=== PATIENT | male | born 1985 ===

== ENCOUNTER 2018-07-05 17:26 | Inpatient (IN) | payer SELFPAY ==
[~2018-07-05] VITALS: Ht 190.5 cm; Wt 86.4 kg
[2018-07-05] MEDS ORDERED: vancomycin/NS 1 GM ADD-VANTAGE 250 ML IV ONE (17:45)
[2018-07-05] MEDS ORDERED: LORazepam 2 mg/ml vial IV ONE (17:45)
[2018-07-05] MEDS ORDERED: normal saline 1000ML IV soln IV ONE (17:45)
[2018-07-05] MEDS ORDERED: piperacillin/tazo 3.375gm/50ml 50 ML IV ONE (17:45)
[2018-07-05 18:10] LABS: BASOPHILS # (AUTO) 0.1 X10'3 (0-0.2); BASOPHILS % (AUTO) 0.7 % (0-1); EOSINOPHILS # (AUTO) 0.6 X10'3 (0-0.9); EOSINOPHILS % (AUTO) 7.3 % (0-6); HEMOGLOBIN 13.1 g/dl (14.0-17.9); LYMPHOCYTES # (AUTO) 1.3 X10'3 (1.1-4.8); LYMPHOCYTES % (AUTO) 14.9 % (21-51); MEAN CORPUSCULAR HEMOGLOBIN 31.2 PG (27.0-31.0); MEAN CORPUSCULAR HGB CONC 33.7 % (33.0-36.5); MEAN CORPUSCULAR VOLUME 92.6 FL (78-98); MEAN PLATELET VOLUME 8.1 FL (7.4-10.4); MONOCYTES # (AUTO) 0.8 X10'3 (0-0.9); MONOCYTES % (AUTO) 8.7 % (2-12); NEUTROPHILS # (AUTO) 6.1 X10'3 (1.8-7.7); NEUTROPHILS % (AUTO) 68.4 % (42-75); PLATELET COUNT 296 X10'3 (140-440); RED BLOOD COUNT 4.21 X10'6 (4.70-6.10); RED CELL DISTRIBUTION WIDTH 12.7 % (11.5-14.5); WHITE BLOOD COUNT 8.9 X10'3 (4.5-11.0)
--- NOTE | 2018-07-05 18:19 | NUR ---
PATIENT ARRIVED IN CUSTODY OF [facility] FROM [facility]ILL[facility] NURSING WITH LEFT FOOT SWELLING, REDDNESS, PUSS AND PAIN. 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
[2018-07-05 18:20] LABS: PROTHROMBIN TIME 10.4 SECONDS (9.0-12.0)
[2018-07-05 18:23] LABS: ALANINE AMINOTRANSFERASE 24 U/L (12-78); ALBUMIN 3.7 G/DL (3.4-5.0); ALBUMIN/GLOBULIN RATIO 1.1 (1.1-1.5); ALKALINE PHOSPHATASE 62 IU/L (46-116); ANION GAP 9 (8-16); ASPARTATE AMINO TRANSFERASE 24 U/L (10-37); BILIRUBIN,TOTAL 0.7 MG/DL (0.1-1.0); BLOOD UREA NITROGEN 22 MG/DL (7-18); BUN/CREATININE RATIO 20.2 (5.4-32.0); CALCIUM 8.8 MG/DL (8.5-10.1); CHLORIDE 102 MMOL/L (99-107); CREATININE 1.09 MG/DL (0.60-1.10); GLUCOSE 109 MG/DL (70-104); POTASSIUM 3.8 MMOL/L (3.5-5.1); SODIUM 139 MMOL/L (135-145); TOTAL CARBON DIOXIDE 27.6 MMOL/L (24-32); TOTAL PROTEIN 7.1 G/DL (6.4-8.2); eGFR 78 ML/MIN
[2018-07-05] MEDS ORDERED: iohexol 300mg/ml 100ml inj. ONE (18:23)
[2018-07-05] MEDS ORDERED: NO HOME MEDS (18:44)
[2018-07-05] MEDS ORDERED: mag hydrox/Alum hydrox/simeth 30ml oral suspension PO PRN (20:00)
[2018-07-05] MEDS ORDERED: acetaminophen 325mg tablet PO PRN (20:00)
[2018-07-05] MEDS: heparin, porcine 5000 units/ml vial SQ SCH (20:00)
[2018-07-05] MEDS ORDERED: HYDROcodone/acetaminophen 5mg/325mg tablet PO PRN (20:00)
[2018-07-05] MEDS ORDERED: magnesium hydroxide 30ml (MOM) UD suspension PO PRN (20:00)
[2018-07-05] MEDS ORDERED: ondansetron/PF 4mg/2ml inj IV PRN (20:00)
[2018-07-05] MEDS: piperacillin/tazo 3.375gm/50ml 50 ML IV SCH (20:00)
[2018-07-05] MEDS ORDERED: vancomycin/NS 1 GM ADD-VANTAGE 250 ML X 1 DOSE IV ONE (20:10)
[2018-07-05] MEDS: normal saline 1000ml 1,000 ML IV SCH (20:12)
[2018-07-05 20:26] LABS: CLARITY,URINE CLEAR (Clear); COLOR,URINE STRAW (Yellow); GLUCOSE, URINE NEGATIVE (Neg); KETONES,URINE 15 mg/dl (Neg); LEUKOCYTE ESTERASE ,URINE NEGATIVE (Neg); NITRITES, URINE NEGATIVE (Neg); OCCULT BLOOD,URINE NEGATIVE (Neg); PH,URINE 5.5 (4.8-8.0); PROTEIN,URINE NEGATIVE (Neg); UA COLLECTION TYPE CLN CATCH MIDSTREAM; UROBILINOGEN,URINE 0.2 E.U/dL (0.2-1.0)
[2018-07-05 20:38] LABS: URINE AMPHETAMINE SCREEN NEGATIVE (Neg); URINE BARBITUATE SCREEN NEGATIVE (Neg); URINE BENZODIAZEPINES SCREEN NEGATIVE (Neg); URINE CANNABINOID SCREEN NEGATIVE (Neg); URINE COCAINE SCREEN NEGATIVE (Neg); URINE METHADONE SCREEN NEGATIVE (Neg); URINE OPIATE SCREEN NEGATIVE (Neg); URINE PHENCYCLIDINE SCREEN NEGATIVE (Neg)
[2018-07-05 22:15] VITALS: BP 105/62
[2018-07-05] MEDS: LORazepam 2 mg/ml vial IV PRN (22:17)
[2018-07-05] MEDS: HYDROcodone/acetaminophen 10/325mg tab PO PRN (22:18)
[2018-07-06] MEDS: piperacillin/tazo 3.375gm/50ml 50 ML IV SCH ×4 (01:40→19:38)
[2018-07-06] MEDS: HYDROcodone/acetaminophen 10/325mg tab PO PRN ×5 (01:58→23:15)
[2018-07-06] MEDS: vancomycin inj 1,250 MG in normal saline 250ml IV soln 250 ML IV SCH ×3 (03:56→20:37)
[2018-07-06] MEDS: LORazepam 2 mg/ml vial IV PRN ×5 (04:46→23:12)
[2018-07-06] MEDS: normal saline 1000ml 1,000 ML IV SCH ×3 (05:07→17:24)
[2018-07-06 05:30] LABS: BASOPHILS % (AUTO) 0.5 % (0-1); EOSINOPHILS # (AUTO) 0.8 X10'3 (0-0.9); EOSINOPHILS % (AUTO) 10.6 % (0-6); HEMATOCRIT 32.9 % (42.0-52.0); LYMPHOCYTES # (AUTO) 1.5 X10'3 (1.1-4.8); MEAN CORPUSCULAR HEMOGLOBIN 30.7 PG (27.0-31.0); MEAN CORPUSCULAR HGB CONC 33.4 % (33.0-36.5); MEAN CORPUSCULAR VOLUME 91.9 FL (78-98); MEAN PLATELET VOLUME 8.2 FL (7.4-10.4); MONOCYTES # (AUTO) 0.6 X10'3 (0-0.9); NEUTROPHILS # (AUTO) 4.4 X10'3 (1.8-7.7); NEUTROPHILS % (AUTO) 59.9 % (42-75); PLATELET COUNT 211 X10'3 (140-440); RED BLOOD COUNT 3.58 X10'6 (4.70-6.10); RED CELL DISTRIBUTION WIDTH 13.1 % (11.5-14.5); WHITE BLOOD COUNT 7.3 X10'3 (4.5-11.0)
[2018-07-06 05:41] LABS: ALANINE AMINOTRANSFERASE 18 U/L (12-78); ALBUMIN 2.4 G/DL (3.4-5.0); ALKALINE PHOSPHATASE 43 IU/L (46-116); ANION GAP 6 (8-16); ASPARTATE AMINO TRANSFERASE 15 U/L (10-37); BILIRUBIN,TOTAL 0.5 MG/DL (0.1-1.0); BLOOD UREA NITROGEN 15 MG/DL (7-18); BUN/CREATININE RATIO 15.2 (5.4-32.0); CALCIUM 7.6 MG/DL (8.5-10.1); CHLORIDE 110 MMOL/L (99-107); CREATININE 0.99 MG/DL (0.60-1.10); GLUCOSE 86 MG/DL (70-104); POTASSIUM 3.9 MMOL/L (3.5-5.1); SODIUM 144 MMOL/L (135-145); TOTAL CARBON DIOXIDE 28.4 MMOL/L (24-32); TOTAL PROTEIN 4.8 G/DL (6.4-8.2); eGFR 88 ML/MIN
--- NOTE | 2018-07-06 06:40 | NUR ---
Problems reprioritized. Patient report given, questions answered & plan of care reviewed with BLANCA. Addendum: 07/06/18 at 0641 by Gautam Potter RN Amended: Links added.
[2018-07-06 07:14] VITALS: BP 111/55
--- NOTE | 2018-07-06 07:30 | NUR ---
Patient got up and ambulated to bathroom to void. Patient steady with ambulation. Patient came back from the bathroom and would not give nursing his urinal. Patient states that he drinks his urine, patient also stated that the urine is a narcotic. Patient became more aggitated when nursing explained not to drink urine. 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 I tried to explain to patient this is not how it works here. Patient states he can prescribe his own medications he just does not have his script pad. [facility].
[2018-07-06] MEDS: heparin, porcine 5000 units/ml vial SQ SCH ×3 (08:00→20:00)
--- NOTE | 2018-07-06 08:32 | NUR ---
Patient masturbated in bed and would not let nursing change sheets he does have sweat pants on. Patient also said he had fruit from [employer] and then fell asleep.
[2018-07-06 11:14] VITALS: BP 99/56
--- NOTE | 2018-07-06 12:19 | NUR ---
Contacted Dom with [facility] to generate a call. Tele psych Consult # [id number]
[2018-07-06] MEDS: OLANZapine 5mg rapidly disint. tablet PO SCH ×3 (13:58→20:00)
[2018-07-06] MEDS: OLANZapine **IM** 10 mg inj. IM PRN (15:59)
--- NOTE | 2018-07-06 16:00 | NUR ---
Patient was washing foot off in the shower. Patient was scrubbing foot vigorously causing it to bleed. 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 Security was called and patient was asked again to get back in bed and complied with request with security at bedside. Patient was given 10mg IM Zyprexa Per MD orders.
--- NOTE | 2018-07-06 18:46 | NUR ---
Problems reprioritized. Patient report given, questions answered & plan of care reviewed with Shanell Felton RN.
[2018-07-06] MEDS: lactobacillus rhamnosus 10,000 MMU CELLS/CAPSULE PO SCH (19:38)
[2018-07-06 20:00] VITALS: BP 133/67
[2018-07-07] VITALS: BP 88/73
[2018-07-07] MEDS: piperacillin/tazo 3.375gm/50ml 50 ML IV SCH ×4 (01:56→19:42)
[2018-07-07 02:43] VITALS: BP 110/69
[2018-07-07] MEDS: LORazepam 2 mg/ml vial IV PRN ×5 (03:22→18:51)
[2018-07-07] MEDS: HYDROcodone/acetaminophen 10/325mg tab PO PRN ×2 (03:22→07:58)
[2018-07-07] MEDS ORDERED: VANCOMYCIN LEVEL IV NR (03:30)
[2018-07-07] MEDS: vancomycin inj 1,250 MG in normal saline 250ml IV soln 250 ML IV SCH ×3 (03:58→20:34)
[2018-07-07 04:51] LABS: BASOPHILS % (AUTO) 0.5 % (0-1); EOSINOPHILS # (AUTO) 0.7 X10'3 (0-0.9); EOSINOPHILS % (AUTO) 12.5 % (0-6); HEMATOCRIT 35.7 % (42.0-52.0); HEMOGLOBIN 12.1 g/dl (14.0-17.9); LYMPHOCYTES # (AUTO) 1.4 X10'3 (1.1-4.8); LYMPHOCYTES % (AUTO) 24.8 % (21-51); MEAN CORPUSCULAR HEMOGLOBIN 31.8 PG (27.0-31.0); MEAN CORPUSCULAR HGB CONC 33.9 % (33.0-36.5); MEAN CORPUSCULAR VOLUME 93.6 FL (78-98); MEAN PLATELET VOLUME 8.4 FL (7.4-10.4); MONOCYTES # (AUTO) 0.4 X10'3 (0-0.9); MONOCYTES % (AUTO) 7.4 % (2-12); NEUTROPHILS # (AUTO) 3.3 X10'3 (1.8-7.7); NEUTROPHILS % (AUTO) 54.8 % (42-75); PLATELET COUNT 248 X10'3 (140-440); RED BLOOD COUNT 3.82 X10'6 (4.70-6.10); RED CELL DISTRIBUTION WIDTH 12.3 % (11.5-14.5); WHITE BLOOD COUNT 5.8 X10'3 (4.5-11.0)
[2018-07-07 04:52] LABS: ALANINE AMINOTRANSFERASE 25 U/L (12-78); ALBUMIN 2.7 G/DL (3.4-5.0); ALBUMIN/GLOBULIN RATIO 0.9 (1.1-1.5); ALKALINE PHOSPHATASE 47 IU/L (46-116); ANION GAP 7 (8-16); ASPARTATE AMINO TRANSFERASE 17 U/L (10-37); BILIRUBIN,TOTAL 0.3 MG/DL (0.1-1.0); BLOOD UREA NITROGEN 22 MG/DL (7-18); BUN/CREATININE RATIO 19.5 (5.4-32.0); CHLORIDE 108 MMOL/L (99-107); CREATININE 1.13 MG/DL (0.60-1.10); GLUCOSE 78 MG/DL (70-104); POTASSIUM 3.9 MMOL/L (3.5-5.1); SODIUM 145 MMOL/L (135-145); TOTAL CARBON DIOXIDE 30.4 MMOL/L (24-32); TOTAL PROTEIN 5.8 G/DL (6.4-8.2); VANCOMYCIN,TROUGH 19.6 UG/ML (6.0-14.0); eGFR 75 ML/MIN
--- NOTE | 2018-07-07 05:26 | NUR ---
Vanco trough 19.6. Spoke to Sonu in pharmacy, verified no action needed. Vanco result okay.
--- NOTE | 2018-07-07 06:41 | NUR ---
Problems reprioritized. Patient report given, questions answered & plan of care reviewed with AGUSTINA Diaz.
--- NOTE | 2018-07-07 06:43 | NUR ---
Patient in room [facility]. I have received report from Candie BERRIOS and had the opportunity to ask questions and assume patient care.
[2018-07-07] MEDS: OLANZapine 5mg rapidly disint. tablet PO SCH ×3 (07:58→20:00)
[2018-07-07] MEDS: lactobacillus rhamnosus 10,000 MMU CELLS/CAPSULE PO SCH ×3 (07:58→20:00)
[2018-07-07 08:00] VITALS: BP 143/74
[2018-07-07] MEDS: heparin, porcine 5000 units/ml vial SQ SCH ×2 (08:00→20:00)
--- NOTE | 2018-07-07 11:14 | NUR ---
SS met with pt this AM to assess pt's mental status. Pt was alert & oriented only to self & place, continues to endorse grandiose delusions- this morning pt is trying to organized his day. 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 SS will continue to monitor to facilitate pt's access to [facility] services when pt is medically cleared for d/c.
[2018-07-07] MEDS: normal saline 1000ml 1,000 ML IV SCH ×2 (11:56→21:56)
[2018-07-07 12:00] VITALS: BP 127/68
[2018-07-07] MEDS: OLANZapine **IM** 10 mg inj. IM PRN ×2 (12:15→20:38)
--- NOTE | 2018-07-07 18:41 | NUR ---
Problems reprioritized. Patient report given, questions answered & plan of care reviewed with Pat RN.
--- NOTE | 2018-07-07 18:55 | NUR ---
ativan given agitation
--- NOTE | 2018-07-07 19:00 | NUR ---
pt refuses non-slip sock to be removed to check pulses Addendum: 07/08/18 at 0239 by Tanesha De La Rosa RN Amended: Links added.
--- NOTE | 2018-07-07 20:40 | NUR ---
pt vary agitated; in hallway wanting to use a computer; security called; spit PO zyprexa earlier; pt states he wants dilaudid mixed with morphine; pt agreed to take zypreza, IM only after he thought he was getting dilaudid & morphine
--- NOTE | 2018-07-08 | NUR ---
zyprexa more effective than ativan; pt less agitated & sleeping within an hour...currently sleeping with no distress noted
[2018-07-08] MEDS: piperacillin/tazo 3.375gm/50ml 50 ML IV SCH ×4 (01:50→18:41)
--- NOTE | 2018-07-08 03:58 | NUR ---
attempt to have labs drawn & to have IV vanco administered; pt states "leave me now" & points to door; sitter at bedside; pt very agitated, becoming a little more calm when moving towards the door
[2018-07-08] MEDS: vancomycin inj 1,250 MG in normal saline 250ml IV soln 250 ML IV SCH ×3 (04:29→18:40)
--- NOTE | 2018-07-08 04:29 | NUR ---
pt now sleeping; IV Arjun ramos at this time
--- NOTE | 2018-07-08 06:00 | NUR ---
Patient in room [facility]. I have received report from Pat RN and had the opportunity to ask questions and assume patient care.
--- NOTE | 2018-07-08 06:30 | NUR ---
pt presently sleeping with resp even and unlabored; sitter at bedside; report given to AGUSTINA Laboy
[2018-07-08] MEDS: HYDROcodone/acetaminophen 10/325mg tab PO PRN ×3 (07:17→19:59)
[2018-07-08] MEDS: OLANZapine 5mg rapidly disint. tablet PO SCH ×2 (07:17→19:58)
[2018-07-08] MEDS: normal saline 1000ml 1,000 ML IV SCH (07:30)
[2018-07-08] MEDS: lactobacillus rhamnosus 10,000 MMU CELLS/CAPSULE PO SCH ×2 (07:39→18:41)
[2018-07-08] MEDS: heparin, porcine 5000 units/ml vial SQ SCH ×2 (07:41→18:41)
--- NOTE | 2018-07-08 07:43 | NUR ---
Patient refusing to have labs drawn and also refusing vital signs. 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
--- NOTE | 2018-07-08 07:45 | NUR ---
Pt refusing to have physical examination.
[2018-07-08] MEDS: LORazepam 2 mg/ml vial IV PRN (09:12)
[2018-07-08] MEDS: OLANZapine **IM** 10 mg inj. IM PRN ×2 (09:59→19:58)
--- NOTE | 2018-07-08 10:43 | NUR ---
MD notified of pt pulling out IV, refusing labs, refusing vital signs, is very agitated and has been medicated but is not calming patient down. MD stated she will be in to see patient.
[2018-07-08 12:17] VITALS: BP 129/72
[2018-07-08] MEDS ORDERED: LORazepam 1 MG tablet PO PRN (14:10)
[2018-07-08] MEDS ORDERED: ziprasidone IM 20mg inj **IM only IM ONE (14:20)
--- NOTE | 2018-07-08 14:30 | NUR ---
MD informed that patient is very agitated and will not calm down. MD ordered geodon once 20mg IM. MD attempted to see patient but patient yelled at MD telling her to leave now. MD left. Will continue to monitor.
[2018-07-08] MEDS ORDERED: LORazepam 0.5 MG tablet PO PRN (15:30)
--- NOTE | 2018-07-08 15:35 | NUR ---
attempted to see pt again, pt refusing to let MD see him, yelling in hallway telling her to leave. Addendum: 07/08/18 at 1603 by Narda Montemayor RN MD informed that Geodon was given and pt is still very agitated and disruptive. stated, "There is nothing I can do for this patient, I am not a psych doctor. I cannot medically clear patient because he will not let me examine him."
--- NOTE | 2018-07-08 18:35 | NUR ---
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 Addendum: 07/09/18 at 0409 by Leticia Harrison RN Amended: Links added.
--- NOTE | 2018-07-08 18:39 | NUR ---
Problems reprioritized. Patient report given, questions answered & plan of care reviewed with Leticia BERRIOS.
[2018-07-08 19:00] VITALS: BP 134/95
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
--- NOTE | 2018-07-08 22:30 | NUR ---
Patient stated that he couldn't leave and had to stay here for 72 hrs. It was explained to him that we do not hold people here on med/surg for 72 hrs holds. Pt stated to security that he will go then.
== END 2018-07-08 22:30 | disposition left against medical advice (07) | DRG 603 ==
LOC: ER 17:27 → ED HOLD 19:56 → SUR 3N 22:00
PROVIDERS: ADMIT Internal Medicine; ATTEND Family Medicine
PROC: BQ2S1ZZ Computerized Tomography (CT Scan) of Left Lower Extremity using Low Osmolar Contrast (ICD-10-PCS; principal; 2018-07-05)
DX: L03.116 Cellulitis of left lower limb (principal); F23 Brief psychotic disorder; R45.1 Restlessness and agitation; L08.9 Local infection of the skin and subcutaneous tissue, unspecified; Z53.21 Procedure and treatment not carried out due to patient leaving prior to being seen by health care provider; Z59.0 Homelessness
CPT/HCPCS: 36415; 73701; 80053; 80202; 80305; 81003; 83605; 84145; 85025; 85610; 87040; 87070; 93005; 96365; 96368; 96375; 99285; G0378; J1644; J2060; J2543; J3370; J3486; J7030; Q9967

== ENCOUNTER 2018-08-03 12:37 | Emergency (ER) | payer SELFPAY ==
[~2018-08-03 12:37] MED LIST: NO HOME MEDS
== END 2018-08-03 12:55 | disposition left against medical advice (07) ==
LOC: ER 12:38
DX: Z00.8 Encounter for other general examination (principal); Z53.21 Procedure and treatment not carried out due to patient leaving prior to being seen by health care provider

== ENCOUNTER 2018-08-08 02:20 | Emergency (ER) | payer SELFPAY | END 2018-08-08 03:20 | disposition left against medical advice (07) | LOC: ER 02:20 | DX: M54.9 Dorsalgia, unspecified (principal); Z53.21 Procedure and treatment not carried out due to patient leaving prior to being seen by health care provider ==

== ENCOUNTER 2018-08-10 20:34 | Emergency (ER) | payer SELFPAY ==
[~2018-08-10] VITALS: Ht 190.5 cm; Wt 85.0 kg
[2018-08-10 20:43] VITALS: BP 129/72
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
--- NOTE | 2018-08-10 21:23 | NUR ---
[employer] AT BEDSIDE INTERVIEWING PATIENT
[2018-08-10] MEDS ORDERED: ibuprofen tablet 400 MG TABLET PO ONE (21:25)
== END 2018-08-10 21:53 | disposition home or self-care (01) ==
LOC: ER 20:35
DX: M25.512 Pain in left shoulder (principal); F15.90 Other stimulant use, unspecified, uncomplicated; Z59.0 Homelessness; Z56.0 Unemployment, unspecified; W22.8XXA Striking against or struck by other objects, initial encounter; Y93.89 Activity, other specified; Y92.89 Other specified places as the place of occurrence of the external cause; Y99.9 Unspecified external cause status
CPT/HCPCS: 73030; 99283

== ENCOUNTER 2018-08-11 14:37 | Emergency (ER) | payer OTHER ==
[~2018-08-11] VITALS: Ht 190.5 cm; Wt 84.1 kg
[2018-08-11 14:45] VITALS: BP 106/68
== END 2018-08-12 01:04 | disposition left against medical advice (07) ==
LOC: ER 14:38
DX: R55 Syncope and collapse (principal); Z53.21 Procedure and treatment not carried out due to patient leaving prior to being seen by health care provider